=== PATIENT | female | born 1995 | race Caucasian/White ===

== ENCOUNTER 2022-10-29 15:03 | Inpatient (IN) | payer BC ==
[~2022-10-29 15:03] MED LIST: Lidocaine 1% 10 ML MDV ONE
[2022-10-29] MEDS ORDERED: Acetaminophen 325 MG Tab PO PRN (15:12)
[2022-10-29] MEDS ORDERED: Nalbuphine 10 MG/0.5 ML Syringe IVPUSH PRN (15:12)
[2022-10-29] MEDS ORDERED: Sodium Chloride 0.9% 10 ML Syringe FLUSH PRN (15:12)
[2022-10-29] MEDS ORDERED: Calcium Carbonate 500 MG Tab.Chew PO PRN (15:12)
[2022-10-29] MEDS ORDERED: Ondansetron 4 MG/2 ML SDV IVPUSH PRN (15:12)
[2022-10-29] MEDS ORDERED: Oxytocin/Lactated Ringers 10 UNIT/1,000 ML BAG IV SCH ×2 (15:15)
[2022-10-29] MEDS: Lactated Ringers 1,000 ML IV SCH ×3 (15:55→22:07)
[2022-10-29] MEDS ORDERED: fentaNYL 100 MCG/2 ML SDV EPIDUR PRN (19:15)
[2022-10-29] MEDS ORDERED: ePHEDrine 50 MG/ML SDV IVPUSH PRN (19:15)
[2022-10-29] MEDS ORDERED: diphenhydrAMINE 50 MG/ML SDV IVPUSH PRN (19:15)
[2022-10-29] MEDS ORDERED: Sodium Chloride 0.9% 10 ML Syringe FLUSH SCH (21:00)
[2022-10-29] MEDS: Bupivacaine/fentaNYL/NS 100 ML Bag EPIDUR PRN (22:04)
[2022-10-30] MEDS: Lactated Ringers 1,000 ML IV SCH (04:42)
[2022-10-30] MEDS: Bupivacaine/fentaNYL/NS 100 ML Bag EPIDUR PRN (06:02)
[2022-10-30] MEDS ORDERED: Benzocaine/Menthol 20%-0.5% Spray 78 GM Cannister TOP PRN (11:01)
[2022-10-30] MEDS ORDERED: Witch Hazel Medicated Pads 40/Jar TOP PRN (11:01)
[2022-10-30] MEDS: Ibuprofen 600 MG Tab PO PRN ×2 (14:40→21:12)
[2022-10-30] MEDS ORDERED: Acetaminophen 325 MG Tab PO PRN (22:55)
[2022-10-30] MEDS: Docusate Sodium 100 MG Cap PO PRN (23:02)
[2022-10-31] MEDS: Docusate Sodium 100 MG Cap PO PRN (08:04)
[2022-10-31] MEDS: Ibuprofen 600 MG Tab PO PRN (08:06)
[2022-10-31] MEDS ORDERED: Prenatal Multivitamin with Calcium/Folic Acid/Iron Tab PO SCH (09:00)
== END 2022-10-31 14:45 | disposition home or self-care (01) | DRG 560 ==
LOC: JD.OBCHECK 15:03 → JD.OB 15:05 → JD.OBCHECK 15:13 → JD.OB 10-30 09:00
PROVIDERS: ADMIT Obstetrics & Gynecology; ATTEND Obstetrics & Gynecology
PROC: 10E0XZZ Delivery of Products of Conception, External Approach (ICD-10-PCS; principal; 2022-10-30)
PROC: 10907ZC Drainage of Amniotic Fluid, Therapeutic from Products of Conception, Via Natural or Artificial Opening (ICD-10-PCS; 2022-10-30)
PROC: 3E033VJ Introduction of Other Hormone into Peripheral Vein, Percutaneous Approach (ICD-10-PCS; 2022-10-30)
PROC: 0KQM0ZZ Repair Perineum Muscle, Open Approach (ICD-10-PCS; 2022-10-30)
PROC: 3E0R3BZ Introduction of Anesthetic Agent into Spinal Canal, Percutaneous Approach (ICD-10-PCS; 2022-10-30)
PROC: 00HU33Z Insertion of Infusion Device into Spinal Canal, Percutaneous Approach (ICD-10-PCS; 2022-10-30)
DX: O13.4 Gestational [pregnancy-induced] hypertension without significant proteinuria, complicating childbirth (principal); Z37.0 Single live birth; O70.1 Second degree perineal laceration during delivery; Z3A.38 38 weeks gestation of pregnancy
CPT/HCPCS: 01967; 36415; 51701; 51702; 59025; 59409; 82565; 82570; 83615; 84156; 84450; 84460; 84520; 84550; 85025; 86592; 86850; 86900; 86901; A9270-GY; J2405; J2590; J3010; J3490; J7120

== ENCOUNTER 2024-12-19 04:04 | Inpatient (IN) | payer OTHER ==
[2024-12-19] MEDS ORDERED: Nalbuphine 10 MG/1 ML Vial IVPUSH PRN (04:28)
[2024-12-19] MEDS ORDERED: Lidocaine 1% 50 ML MDV INJECT PRN (04:28)
[2024-12-19] MEDS ORDERED: Sodium Chloride 0.9% 10 ML Syringe FLUSH PRN (04:28)
[2024-12-19] MEDS ORDERED: Ondansetron 4 MG/2 ML SDV IVPUSH PRN (04:28)
[2024-12-19] MEDS: Lactated Ringers 1,000 ML IV SCH (04:37)
[2024-12-19 04:42] LABS: BASOPHILS ABSOLUTE AUTO 0.1 K/mm3 (0.0-0.2); BASOPHILS PERCENT AUTO 0.3 % (0.0-1.0); EOSINOPHILS ABSOLUTE AUTO 0.1 K/mm3 (0.0-0.4); EOSINOPHILS PERCENT AUTO 0.5 % (0.0-6.0); HEMATOCRIT 40.7 % (37.0-47.0); HEMOGLOBIN 13.8 gm/dl (12.0-16.0); IMMATURE GRAN ABSOLUTE AUTO 0.16 K/mm3 (0.00-0.05); IMMATURE GRAN PERCENT AUTO 0.9 % (0.0-0.4); LYMPHOCYTES ABSOLUTE AUTO 2.4 K/mm3 (1.0-4.8); LYMPHOCYTES PERCENT AUTO 13.6 % (24.0-44.0); MEAN CORPUSCULAR HEMOGLOBIN 30.8 pg (28.0-32.0); MEAN CORPUSCULAR HGB CONC 33.9 g/dl (32.0-36.0); MEAN CORPUSCULAR VOLUME 90.8 fl (83.0-99.0); MEAN PLATELET VOLUME 11.8 fl (9.4-12.3); MONOCYTES ABSOLUTE AUTO 1.2 K/mm3 (0.0-0.8); MONOCYTES PERCENT AUTO 6.6 % (0.0-8.0); NEUTROPHILS PERCENT AUTO 78.1 % (41.0-71.0); PLATELET COUNT,PLT 134 K/mm3 (150-400); RED BLOOD CELL COUNT 4.48 M/mm3 (4.10-5.30); WHITE BLOOD CELL COUNT,WBC 17.93 K/mm3 (3.9-11.3)
[2024-12-19] MEDS ORDERED: ePHEDrine 50 MG/ML SDV IVPUSH PRN (05:12)
[2024-12-19] MEDS ORDERED: diphenhydrAMINE 50 MG/ML SDV IVPUSH PRN (05:12)
[2024-12-19] MEDS: Bupivacaine/fentaNYL/NS 100 ML Bag EPIDUR PRN (06:45)
[2024-12-19] MEDS: Oxytocin/0.9 % Sodium Chloride 30 UNIT/500 ML BAG IV SCH (06:45)
[2024-12-19] MEDS ORDERED: Lidocaine 1.5% with EPINEPHrine 1:200,000 5 ML Amp ONE (07:00)
[2024-12-19] MEDS ORDERED: Oxytocin/0.9 % Sodium Chloride 30 UNIT/500 ML BAG IV SCH (07:39)
[2024-12-19] MEDS ORDERED: Hydrocortisone Acetate 25 MG Supp RECTAL PRN (07:39)
[2024-12-19] MEDS ORDERED: Magnesium Hydroxide 400 MG/5 ML Susp 30 ML Cup PO PRN (07:39)
[2024-12-19] MEDS ORDERED: Acetaminophen 325 MG Tab PO PRN (07:39)
[2024-12-19] MEDS ORDERED: Docusate Sodium 100 MG Cap PO PRN (07:39)
[2024-12-19] MEDS ORDERED: Simethicone 80 MG Tab.Chew PO PRN (07:39)
[2024-12-19] MEDS: Witch Hazel Medicated Pads 40/Jar TOP PRN (07:49)
[2024-12-19] MEDS: Ibuprofen 600 MG Tab PO SCH (07:49)
[2024-12-19] MEDS: Benzocaine/Menthol 20%-0.5% Spray 78 GM Cannister TOP PRN (07:50)
[2024-12-19] MEDS ORDERED: Sodium Chloride 0.9% 10 ML Syringe FLUSH SCH (09:00)
[2024-12-19] MEDS: Prenatal Multivitamin with Calcium/Folic Acid/Iron Tab PO SCH (10:49)
[2024-12-20] MEDS: Measles, Mumps & Rubella Vaccine 0.5 ML SDV SUBCUT ONE (03:51)
== END 2024-12-20 10:58 | disposition home or self-care (01) | DRG 807 ==
LOC: JD.OBCHECK 04:04 → JD.OB 04:08 → JD.OBCHECK 05:31 → JD.OB 05:31
PROVIDERS: ADMIT Obstetrics & Gynecology; ATTEND Obstetrics & Gynecology
PROC: 3E0R3BZ Introduction of Anesthetic Agent into Spinal Canal, Percutaneous Approach (ICD-10-PCS; principal; 2024-12-19)
PROC: 3E033VJ Introduction of Other Hormone into Peripheral Vein, Percutaneous Approach (ICD-10-PCS; principal; 2024-12-19)
PROC: 10907ZC Drainage of Amniotic Fluid, Therapeutic from Products of Conception, Via Natural or Artificial Opening (ICD-10-PCS; principal; 2024-12-19)
PROC: 10E0XZZ Delivery of Products of Conception, External Approach (ICD-10-PCS; principal; 2024-12-19)
PROC: 0HQ9XZZ Repair Perineum Skin, External Approach (ICD-10-PCS; principal; 2024-12-19)
DX: O70.0 First degree perineal laceration during delivery (principal); Z37.0 Single live birth; Z3A.39 39 weeks gestation of pregnancy; Z88.0 Allergy status to penicillin; Z90.49 Acquired absence of other specified parts of digestive tract; Z79.899 Other long term (current) drug therapy; O71.82 Other specified trauma to perineum and vulva; Z88.8 Allergy status to other drugs, medicaments and biological substances
CPT/HCPCS: 36415; 51701; 59025; 59409; 85025; 86592; A9270-GY; C1758; J3490; J7120; J7999